=== PATIENT | female | born 1965 | race Caucasian/White ===

== ENCOUNTER 2018-12-24 12:08 | Emergency (ER) | payer OTHER ==
[~2018-12-24] VITALS: Ht 167.6 cm; Wt 81.6 kg
[2018-12-24] MEDS ORDERED: FORTAMET500 MG (12:21)
[2018-12-24] MEDS ORDERED: COZAAR25 MG (12:21)
[2018-12-24] MEDS ORDERED: LANTUS SOL100 UNIT/1 SUBCUTANEO (12:21)
== END 2018-12-24 14:26 | disposition home or self-care (01) ==
LOC: ER 12:08
DX: R42 Dizziness and giddiness (principal)